=== PATIENT | female | born 1985 | race Caucasian/White ===

== ENCOUNTER 2024-10-02 16:35 | Emergency (ER) | payer BC, SELFPAY ==
[2024-10-02 16:57] VITALS: BP 116/81; PULSE 118; RESP 20; TEMP 37.1; O2SAT 99; BMI 40.6
--- NOTE | 2024-10-02 17:11 | XR_ITS ---
Examination: PA lateral chest 2 views TECHNIQUE: Upright PA and lateral chest 2 views Exam date and time: October 02, 2024, 1724 hours INDICATIONS: Chills fever and nausea beginning 4 days ago FINDINGS: Normal heart size. Lungs are clear. The osseous structures are intact. IMPRESSION: No active disease.
--- NOTE | 2024-10-02 17:12 | PD.EDRME ---
Rapid Medical Screening Exam E Arrival date/time: 10/02/24 16:35 This is a 39-year-old female that comes in with complaints of fever and chills and nausea vomiting. States that symptoms started about 4 days ago. Patient was seen by her primary provider and was diagnosed with a UTI. Patient was placed on Macrobid and Zofran. Patient states she continues to have fever and chills. Patient denies any other symptoms. Patient did state that she had an episode of diarrhea. Patient denies past medical history. I have greeted and performed a focused initial assessment of this patient. Initial appropriate labs ordered at this time. A comprehensive ED assessment and evaluation of the patient and analysis of all test and completion of medical decision making process will be conducted by additional ED provider. Chief Complaint: Fever Time Seen by Provider: 10/02/24 16:43 Vital signs: Vital Signs Temperature 98.7 F 10/02/24 16:57 Pulse Rate 118 H 10/02/24 16:57 Respiratory Rate 20 10/02/24 16:57 Blood Pressure 116/81 10/02/24 16:57 Pulse Oximetry (%) 99 10/02/24 16:57 Oxygen Delivery Method Room Air 10/02/24 16:57
[2024-10-02] MEDS: ACETAMINOPHEN 500 MG TABLET 1000 MG PO (17:19)
[2024-10-02] MEDS: PROMETHAZINE HCL 25 MG TABLET PO (17:19)
[2024-10-02 18:26] LABS: Collection Type, Urine Voided
[2024-10-02 18:36] LABS: HCG Qualitative,Urine Negative
[2024-10-02 18:44] LABS: Bacteria,Urine 1+; Bilirubin,Urine Negative (Negative); Blood,Urine 3+ (Negative); Budding Yeast,Urine Present; Clarity,Urine Turbid (Clear/Hazy); Glucose, Urine Negative (Negative); Ketones,Urine Trace (Negative); Leukocyte Esterase,Urine Negative (Negative); Nitrite,Urine Negative (Negative); Protein,Urine 2+ (Neg - Trace); RBC,Urine 189 /hpf (0-3); Specific Gravity,Urine 1.028 (1.001-1.035); Squamous Epithelial Cell,Urine 10 /hpf (0-5); WBC,Urine 12 /hpf (0-5)
[2024-10-02 18:45] LABS: Color,Urine Amber (Lt Yel-Yel); Culture Indicated,Urine Yes
[2024-10-02 19:59] VITALS: BP 114/78; PULSE 100; RESP 18; TEMP 37.3; O2SAT 98
[2024-10-02 20:34] VITALS: BP 124/82; PULSE 89
[2024-10-02] MEDS: cefTRIAXone 1,000 MG, LIDOCAINE 1% 20 ML 2.1 ML IM (20:53)
--- NOTE | 2024-10-02 20:53 | EDNOTE_ITS ---
<Statement entered by Caprice Mesa MD - 10/03/24 04:25> As co-signing physician, I was present and available for consult prn. I concur with the plan and care as documented by the midlevel provider. Nausea/Vomit./Diarrhea-RME/HPI General Chief complaint: Fever Stated complaint: FEVER, N/V Time Seen by Provider: 10/02/24 16:43 Arrival date/time: 10/02/24 16:35 RME / HPI RME / HPI Narrative: 39-year-old female with no significant past medical history that comes in with complaints of fever and chills and nausea vomiting. States that symptoms started about 4 days ago. Patient was seen by her primary provider and was diagnosed with a UTI. Patient was placed on Macrobid and Zofran. Patient states she continues to have fever and chills. Patient denies any other symptoms. Patient did state that she had an episode of diarrhea. Patient denies any abdominal pain. Patient is denying any cough sore throat or other complaints. Related Data Previous Rx's ?Medication ?Instructions ?Recorded cefuroxime axetil 500 mg tablet 500 mg PO BID #14 tabs 10/02/24 promethazine 25 mg tablet 25 mg PO TID PRN nausea and 10/02/24 vomiting #20 tabs Allergies Allergy/AdvReac Type Severity Reaction Status Date / Time NKA* Allergy Uncoded 08/30/14 12:10 Review of Systems Review of Systems Narrative Review of Systems: Review of system reviewed and within normal limits except mentioned in HPI ED Exam Narrative Physical exam: VITAL SIGNS: Reviewed. GENERAL APPEARANCE: Alert and interactive, follows commands, no acute distress, HEAD AND FACE: Non-traumatic. ENT: PERRL, pink conjunctivitis, eyelid no trauma, Mucous membrane moist. NECK: Supple, nontender, no nuchal rigidity. CHEST: No tenderness, no crepitus, no paradoxical movement, no retractions. LUNGS: Clear, well ventilated, symmetric, no rales, no wheezing, no ronchi, no stridor, good breath sounds bilaterally. HEART: Regular rate, regular rhythm, no murmur, no gallops. ABDOMEN: Soft, positive bowel sounds, nondistended, no guarding, nontender, no rebound, no masses, RECTAL: Deferred. GENITAL: Deferred. NEUROLOGICAL: Gross motor function intact sensory function intact, Appropriate for age. MUSCULOSKELETAL: low back nontender, full range of motion. EXTREMITIES: Nontender, full range of motion. SKIN: Color pink, dry, no rash, no lacerations, no abrasions, no contusions. LYMPHATICS: Deferred. Course Quality Measures none Orders Category Date Time Status Bedside COVID-19 Antigen Test NOW Care 10/02/24 17:11 Active Bedside Influenza A&B Antigen Test NOW Care 10/02/24 17:11 Completed XR chest 2V Stat Exams 10/02/24 17:11 Completed HCG Qualitative,Urine Stat Lab 10/02/24 18:20 Completed Urinalysis, C/S if Indicated Stat Lab 10/02/24 18:20 Completed Urine Culture Stat Lab 10/02/24 18:20 Received Acetaminophen Tab [Tylenol ES Tab] Med 10/02/24 17:12 Discontinued 1,000 mg PO X1 ONE Promethazine HCl [Phenergan] Med 10/02/24 17:12 Discontinued 25 mg PO X1 ONE cefTRIAXone [Rocephin] 1,000 mg Med 10/02/24 20:41 Discontinued Lidocaine 1% 20 ml [Xylocaine 1% 20 ML] 2.1 ml IM X1 Vital Signs Vital signs: Vital Signs Temperature 98.7 F 10/02/24 16:57 Pulse Rate 118 H 10/02/24 16:57 Respiratory Rate 20 10/02/24 16:57 Blood Pressure 116/81 10/02/24 16:57 Pulse Oximetry (%) 99 10/02/24 16:57 Oxygen Delivery Method Room Air 10/02/24 16:57 Nausea/Vomiting/Diarrhea MDM Narrative MDM Narrative:: 39-year-old female with no significant past medical history that comes in with complaints of fever and chills and nausea vomiting. States that symptoms started about 4 days ago. Patient was seen by her primary provider and was diagnosed with a UTI. Patient was placed on Macrobid and Zofran. Patient states she continues to have fever and chills. Patient denies any other symptoms. Patient did state that she had an episode of diarrhea. Patient denies any abdominal pain. Patient is denying any cough sore throat or other complaints. Patient's workup today is significant for urinalysis positive for UTI chest x- ray came back unremarkable no infiltrates no pneumonia noted Patient was given promethazine and ceftriaxone IM. Patient is tolerating p.o. fluids in the ED. No more vomiting noted. Patient appears nontoxic and hemodynamically stable. Patient discharged home and instructed to follow-up with primary care provider in 24 to 48 hours. Instructed to return to the emergency department immediately if worsening of symptoms Patient data External records reviewed:: None Clinical information provided by:: patient Social determinants that could affect healthcare access:: none Patient has the following chronic illnesses:: None How is presenting disease/condition affected by chronic disease/condition?: no chronic disease Evaluation data The following diagnostics were reviewed and interpreted by me:: lab results and radiology exam(s) Lab and/or radiology exams considered but not ordered:: None Interpretation Summary: See results in MDM Medications / Prescriptions Medications / Prescriptions considered but not ordered:: None Medication administrations:: Medication Administration History Discontinued Medications Acetaminophen (Acetaminophen 500 Mg Tablet) 1,000 mg PO X1 ONE Stop: 10/02/24 17:13 Last Admin: 10/02/24 17:19 Dose: 1,000 mg Documented By: TWILA Ceftriaxone Sodium 1,000 mg/ (Lidocaine HCl 2.1 ml) 0 mg IM X1 ONE Stop: 10/02/24 20:42 Promethazine HCl (Promethazine Hcl 25 Mg Tablet) 25 mg PO X1 ONE Stop: 10/02/24 17:13 Last Admin: 10/02/24 17:19 Dose: 25 mg Documented By: TWILA Promethazine ceftriaxone IM and Tylenol Consultations Consultation(s) initiated? (list below): No Diagnosis Nausea Differential Diagnosis: dehydration and other (Fever, UTI) Most likely diagnosis given after review of the tests above:: UTI, nausea vomiting Admission Indicated Admission indicated?: not indicated Admission Request Was there a request for admission?: No Disposition Plan Disposition Plan: Discharge Discharge Attestation Discharge Attestation: The patient and all family members were given an opportunity to ask questions and understood the discharge instructions. Discharge instructions specifically effects, indications for sooner follow up or return to the emergency department, and the expected course of current diagnosis. Patient condition: Stable Discharge Plan Plan Patient Disposition: HOME (Self Care) Discharge Disposition comment: Stable Prescriptions/Referrals Prescriptions/Med Rec: New cefuroxime axetil 500 mg tablet 500 mg PO BID Qty: 14 0RF promethazine 25 mg tablet 25 mg PO TID PRN (Reason: nausea and vomiting) Qty: 20 0RF Referrals: No Primary/Family,Physician [Primary Care Provider] - In 1 week Problem List Clinical Impression: UTI (urinary tract infection), Nausea & vomiting Patient/Caregiver Discharge Instructions Discharge Activity: activity as tolerated Education Materials: Understanding Urinary Tract ... Additional Instructions: Thank you for the opportunity for serving you today. You are stable for discharged . You are advised to: Follow-up with your PCP in 1 to 2 days Return to ED for worsening of symptoms Increase oral fluids Take medication as prescribed Stop taking your Macrobid Print Language: Danish Stand Alone Forms: Josey Award Info., Patient Portal Info Letter PA/JAVA MANAGER Supervising Physician PA/JAVA MANAGER Supervising Physician: MD William
== END 2024-10-02 20:58 | disposition home or self-care (01) ==
PROVIDERS: Nurse Practitioner Family; Emergency Provider Emergency Medicine
DX: N39.0 Urinary tract infection, site not specified (principal); R11.2 Nausea with vomiting, unspecified
CPT/HCPCS: 71046; 81001; 81025; 87086; 87400; 87811; 96372; 99283; J0696; J3490; A9270